=== PATIENT | female | born 1960 | race Caucasian/White ===

== ENCOUNTER 2020-04-12 18:36 | Inpatient (IN) | payer MEDICARE, MEDICAID ==
[~2020-04-12] VITALS: Ht 142.2 cm; Wt 33.0 kg
--- NOTE | 2020-04-12 21:10 | NUR ---
Patient arrived Alert and oriented X4, moaning, not really saying much. Unlabored breathing, C/O pain and cramping in the abdomen, also prefers to lay flat d/t nausea. Patient was placed in room 94A, on O2 2 LPM, side rails up X2, bed on lowest position and lucked, offered patient ice ships. Called Dr Paris for orders.
[2020-04-12 21:30] VITALS: BP 121/92
[2020-04-12] MEDS ORDERED: HEPARIN SODIUM (PORCINE) 5000 UNITS/ML 1ML VIAL SC SCH (22:00)
[2020-04-12] MEDS ORDERED: NITROGLYCERIN 0.4 MG SL TAB SL PRN (22:00)
[2020-04-12 23:00] LABS: Basophils # (auto) 0 10 ^3/uL (0-0.2); Eosinophils # (auto) 0 10 ^3/uL (0-0.8); Eosinophils % (auto) 0.1 % (0.0-7.0); Hematocrit 24.9 % (36.0-46.0); Neutrophils # (auto) 7.2 10 ^3/uL (1.6-8.6); White Blood Cell 8.1 10^3/uL (4.4-10.8)
[2020-04-12 23:02] LABS: Basophils % (auto) 0.2 % (0.0-2.0); Hemoglobin 7.7 g/dL (12.2-16.2); Lymphocytes # (auto) 0.4 10 ^3/uL (0.4-5.4); Lymphocytes % (auto) 4.3 % (10.0-50.0); Mean Corpuscular Hemoglobin 32.9 pg (28.0-32.0); Mean Corpuscular Hgb Conc. 30.9 g/dL (32.0-36.0); Mean Corpuscular Volume 106.3 fL (80.0-100.0); Monocytes # (auto) 0.6 10 ^3/uL (0-1.3); Neutrophils % (auto) 88.4 % (37.0-80.0); Nucleated Red Blood Cells % 0.1 %; Platelet Count (auto) 147 10^3/uL (140-450); Red Blood Cells 2.34 10^6/uL (4.0-5.20); Red Cell Distribution Width 18.9 % (11.8-14.3)
[2020-04-12 23:16] LABS: Albumin 2.7 g/dL (3.4-5.0); BUN/Creatinine Ratio 2.8; Potassium 3.5 mmol/L (3.5-5.1)
[2020-04-12] MEDS: HYDROcodone-ACET 5/325MG TAB PO PRN (23:20)
[2020-04-12] MEDS: ONDANSETRON HCL 4 MG/2 ML VIAL IV PRN (23:20)
[2020-04-12 23:21] LABS: Bilirubin, Total 0.9 mg/dL (0.2-1.0); Total Protein 6.3 g/dL (6.4-8.2)
--- NOTE | 2020-04-12 23:59 | NUR ---
Troponin levels high, Got a 12 lead EKG, called and notified Dr Paris. No farther orders. Will cont with plan.
[2020-04-13] VITALS (14 sets, daily range): BP systolic 100–144; BP diastolic 33–67
--- NOTE | 2020-04-13 08:00 | NUR ---
Opening Shift Note Assumed care of patient, awake and alert. No S/S of distress/SOB patient is complaining of generalized pain to the spine and abdominal area, I will medicate as ordered. Instructed on POC and to call for assist PRN, will continue to monitor for changes Q1hr and PRN. Bed locked in lowest position with two side rails up and call light in reach.
[2020-04-13] MEDS: HYDROcodone-ACET 5/325MG TAB PO PRN ×3 (08:16→20:20)
--- NOTE | 2020-04-13 09:30 | NUR ---
DR TAWANDA PINON. ORDERS RECEIVED WILL CARRY OUT.
[2020-04-13] MEDS ORDERED: HEPARIN DRIP/D5W 100UNITS/ML 250 ML IV SCH ×2 (09:52→11:45)
[2020-04-13] MEDS ORDERED: ASPirin 325 MG TAB PO ONE (10:00)
[2020-04-13] MEDS ORDERED: methylPREDNISolone SOD SUCC 125 MG/2 ML VL IV ONE (10:00)
[2020-04-13] MEDS: methylPREDNISolone SOD SUCC 125 MG/2 ML VL IV SCH ×2 (10:00→21:20)
[2020-04-13] MEDS: ASPirin 81 mg TAB PO SCH (10:00)
[2020-04-13] MEDS ORDERED: HEPARIN SODIUM (PORCINE) 5000 UNITS/ML 1ML VIAL IV ONE (10:00)
--- NOTE | 2020-04-13 10:20 | NUR ---
EKG DONE STAT ORDERED.
[2020-04-13 10:39] LABS: Basophils # (auto) 0 10 ^3/uL (0-0.2); Eosinophils # (auto) 0 10 ^3/uL (0-0.8); Lymphocytes # (auto) 0.2 10 ^3/uL (0.4-5.4); Monocytes # (auto) 0.4 10 ^3/uL (0-1.3); Neutrophils # (auto) 4.5 10 ^3/uL (1.6-8.6); White Blood Cell 5.2 10^3/uL (4.4-10.8)
[2020-04-13 10:41] LABS: Basophils % (auto) 0.3 % (0.0-2.0); Lymphocytes % (auto) 4.6 % (10.0-50.0); Neutrophils % (auto) 87.1 % (37.0-80.0); Nucleated Red Blood Cells % 0.3 %; Red Blood Cells 2.18 10^6/uL (4.0-5.20)
[2020-04-13 10:42] LABS: Hematocrit 21.8 % (36.0-46.0); Hemoglobin 7.2 g/dL (12.2-16.2); Mean Corpuscular Volume 99.3 fL (80.0-100.0)
[2020-04-13 10:43] LABS: Mean Corpuscular Hemoglobin 32.7 pg (28.0-32.0); Mean Corpuscular Hgb Conc. 32.9 g/dL (32.0-36.0); Platelet Count (auto) 113 10^3/uL (140-450); Red Cell Distribution Width 17.9 % (11.8-14.3)
[2020-04-13 10:51] LABS: INR 1.32 (0.9-1.15); Partial Thromboplastin Time 52.1 sec (23.0-31.2)
[2020-04-13] MEDS: PANTOPRAZOLE 40 MG TAB PO SCH (11:11)
[2020-04-13] MEDS: ATORVASTATIN 20 MG TAB PO SCH (11:11)
[2020-04-13] MEDS: ONDANSETRON HCL 4 MG/2 ML VIAL IV PRN ×2 (11:15→17:44)
[2020-04-13 11:28] LABS: Albumin 2.9 g/dL (3.4-5.0)
[2020-04-13 11:38] LABS: BUN/Creatinine Ratio 3.9; Bilirubin, Total 0.6 mg/dL (0.2-1.0); Total Protein 6.1 g/dL (6.4-8.2)
[2020-04-13 11:46] LABS: Calcium 5.5 mg/dL (8.5-10.1)
--- NOTE | 2020-04-13 11:50 | NUR ---
RECEIVED A CALL FROM JANEEN IN LAB TROPONIN 28.300 Ca 5.5
--- NOTE | 2020-04-13 12:00 | NUR ---
DR NEFF NOTIFIED OF PATIENTS LABS INCLUDING ACCU CHECK 107, EKG RHYTHM AND BLOOD ETA. NO NEW ORDERS RECEIVED.
--- NOTE | 2020-04-13 12:30 | NUR ---
RECEIVED A CALL FROM [facility] IN LAB. PER [facility] ANTIBODIES FOR BLOOD JUST RECEIVED AND WAS SENT OUT FOR BLOOD. PER [facility] BLOOD WONT BE HERE IN HOSPITAL FOR ANOTHER 3 HOURS WHICH IS AROUND 3PM.WILL NOTIFY DR NEFF.
--- NOTE | 2020-04-13 13:30 | NUR ---
DIALYSIS NURSE AT BEDSIDE. I NOTIFIED OF PATIENT GOING DOWN TO DIRECTOR DIGITAL ANALYTICS. PER DR NEFF, DIALYSIS CAN BE DONE AFTER CATH. DR MARRERO AND DIALYSIS NURSE AWARE.
--- NOTE | 2020-04-13 13:45 | NUR ---
VS FOLLOWS 98/51, 82, 100 % 2LNC, 18 .
--- NOTE | 2020-04-13 14:05 | NUR ---
PATIENT TAKEN DOWN TO METALIZING MACHINE OPERATOR.
[2020-04-13] MEDS ORDERED: HEPARIN SODIUM (PORCINE) 5000 UNITS/ML 1ML VIAL ONE (14:48)
[2020-04-13] MEDS ORDERED: ANGIOMAX 250 MG VIAL IV ONE (14:48)
[2020-04-13] MEDS ORDERED: VERAPAMIL 2.5MG/ML INJ 2ML VIAL IV ONE (14:49)
[2020-04-13] MEDS ORDERED: fentaNYL CITRATE 100 MCG/2 ML VL ONE (14:49)
[2020-04-13] MEDS ORDERED: SODIUM CHL 0.9% 0 ML ONE (14:49)
[2020-04-13] MEDS ORDERED: MIDAZOLAM HCL 1MG/1ML-2 ML VIAL ONE (14:49)
[2020-04-13] MEDS ORDERED: LIDOCAINE 2%HCL (LOCAL ANESTH.) INJ 20ML MDV ONE (14:50)
[2020-04-13] MEDS ORDERED: IODIXANOL 320MG/ML 100ML BTL IV ONE ×3 (14:50→16:31)
[2020-04-13] MEDS ORDERED: methylPREDNISolone SOD SUCC 125 MG/2 ML VL ONE (15:21)
[2020-04-13] MEDS ORDERED: FAMOTIDINE (10MG/ML) 2ML VL IV ONE (15:21)
[2020-04-13] MEDS ORDERED: diphenhdrAMINE HCL 50 MG/1 ML VL ONE (15:21)
[2020-04-13] MEDS ORDERED: NOREPINEPHRINE 8 MG/250ML KIT 0 ML IV ONE (16:20)
[2020-04-13] MEDS ORDERED: TICAGRELOR 90 MG TAB ONE (16:22)
--- NOTE | 2020-04-13 17:15 | NUR ---
PT transported to ICU 104 via bed and portable monitor and 02. Transferred to bed with assistance. placed on bedside monitor and 02. drsg to rt groin C/D/I no oozing or bleeding. Primary RN at bedside drsg checked. Pt resting in bed. Transfer services to NATURALIST
--- NOTE | 2020-04-13 17:32 | NUR ---
REPORT GIVEN TO ARI BENNETT. PATIENT GOING TO BED 104
--- NOTE | 2020-04-13 17:34 | NUR ---
Pt being admitted to ICU STEPHAN MUNROE admitted to ICU via gurney on bus driver/monitor, and portable 02. Patient transfered to bed, connected to ICU monitoring and oxygen, and weighed by bedscale. Patient oriented to Rush burks RN, unit, room, bed, and unit policies regarding patient care and visiting hours. All questions and concerns addressed, patient verbalized understanding.
--- NOTE | 2020-04-13 17:45 | NUR ---
DR. JANES TORRES PER DR. NEFF FOR DIALYSIS ORDERS
--- NOTE | 2020-04-13 17:52 | NUR ---
DR. VIRGIE OJEDA NOTIFIED OF DR. LUNA REQUEST FOR DIALYSIS. PER DR. GARVIN PATIENT WILL RECEIVE DIALYSIS TOMORROW 04/14
[2020-04-13] MEDS: CALCIUM ACETATE 667 MG CAP PO SCH (17:53)
--- NOTE | 2020-04-13 18:30 | NUR ---
PATIENT REFUSED DINNER TRAY STATES "I'M NOT HUNGRY"
--- NOTE | 2020-04-13 18:50 | NUR ---
MRSA SCREEN SENT TO LAB VIA BULLET
[2020-04-13] MEDS: TICAGRELOR 90 MG TAB PO SCH (21:20)
[2020-04-13] MEDS: MORPHINE SULF INJ 2 MG/ML SYRINGE 1ML IV PRN (21:41)
[2020-04-13] MEDS ORDERED: TICAGRELOR 90 MG TAB PO SCH (22:00)
--- NOTE | 2020-04-13 23:38 | NUR ---
NARCOTICS FOUND IN BED WITH PATIENT: COVERING DONALD MCDONNELL FOR LUNCH. CHANGED PATIENT'S SHEETS, FOUND 4-5 SMALL WHITE PILLS IN THE BED WITH PRESCRIPTION BOTTLE CAPS. PATIENT CLINGING ON TO PURSE. ASKED IF CNC MAINTENANCE MECHANIC COULD REMOVE PURSE FROM BEDSIDE, FOUND WITH A COUPLE OF DILAUDID PRESCRIPTION BOTTLES WITH THEIR CAPS MISSING. PATIENT STATES SHE DID NOT TAKE ANY OF HER OWN MEDICATION. REMOVED ALL PRESCRIPTIONS FROM HER PURSE. MARTINA GAN RN MADE AWARE. DONALD MCDONNELL TO SEND PRESCRIPTIONS TO PHARMACY
[2020-04-14] VITALS (17 sets, daily range): BP systolic 34–139; BP diastolic 12–91
[2020-04-14] MEDS: MORPHINE SULF INJ 2 MG/ML SYRINGE 1ML IV PRN (02:58)
[2020-04-14 05:18] LABS: Basophils # (auto) 0 10 ^3/uL (0-0.2); Eosinophils # (auto) 0 10 ^3/uL (0-0.8); Hemoglobin 7.1 g/dL (12.2-16.2); Monocytes # (auto) 0.3 10 ^3/uL (0-1.3)
[2020-04-14 05:23] LABS: Basophils % (auto) 0.2 % (0.0-2.0); Eosinophils % (auto) 0.2 % (0.0-7.0); Hematocrit 23.7 % (36.0-46.0); Lymphocytes # (auto) 0.3 10 ^3/uL (0.4-5.4); Lymphocytes % (auto) 7.6 % (10.0-50.0); Mean Corpuscular Hemoglobin 33.3 pg (28.0-32.0); Mean Corpuscular Hgb Conc. 30.1 g/dL (32.0-36.0); Mean Corpuscular Volume 110.8 fL (80.0-100.0); Monocytes % (auto) 6.1 % (0.0-12.0); Neutrophils # (auto) 3.5 10 ^3/uL (1.6-8.6); Neutrophils % (auto) 85.9 % (37.0-80.0); Platelet Count (auto) 130 10^3/uL (140-450); Red Blood Cells 2.14 10^6/uL (4.0-5.20); Red Cell Distribution Width 19.9 % (11.8-14.3); White Blood Cell 4.1 10^3/uL (4.4-10.8)
[2020-04-14 05:27] LABS: Nucleated Red Blood Cells % 3.1 %
[2020-04-14 05:28] LABS: INR 2.05 (0.9-1.15)
[2020-04-14 05:37] LABS: Potassium 4.3 mmol/L (3.5-5.1)
[2020-04-14 05:49] LABS: Albumin 2.9 g/dL (3.4-5.0); BUN/Creatinine Ratio 4.8; Bilirubin, Total 1.1 mg/dL (0.2-1.0); Calcium 6.4 mg/dL (8.5-10.1); Total Protein 5.9 g/dL (6.4-8.2)
[2020-04-14] MEDS: HYDROcodone-ACET 5/325MG TAB PO PRN ×2 (06:40→12:40)
--- NOTE | 2020-04-14 06:44 | NUR ---
PT HAS BEEN ALMOST CONSTANTLY RESTLESS, REMOVING THE OXIGEN, EKG LEADS, IV IN LT ARM,PULSE OX, GOWN. C/O PAIN IN THE ABDOMEN, SPINE,SIDES. MEDICATED TWICE WITH MORPHINE 2 MG IV AND TWICE WITH NORCO. 4 BOTTLES OF NARCOTICS FOUND IN PT'S BED, COUNTED AND PLACED IN SPECIAL BAG TO BE SENT TO PHARMACY FOR SAFE STORAGE. PT SCHEDULED FOR HD THIS MORNING. INCONTINENT OF STOOL TWICE, NO URINE OUTPUT.
[2020-04-14] MEDS ORDERED: SODIUM CHL 0.9% 1000 ML BAG XX ONE ×2 (07:00→12:00)
[2020-04-14] MEDS ORDERED: DEXTROSE 50% SYRINGE 50 ML IV ONE (07:05)
--- NOTE | 2020-04-14 07:21 | NUR ---
BLOOD GLUCOSE BY LAB, REPORTED 49, TWO CUPS OF OJ GIVEN TO PT.
--- NOTE | 2020-04-14 07:30 | NUR ---
REPORT RECEIVED ASSUMING CARE
--- NOTE | 2020-04-14 07:45 | NUR ---
NO IV ACCESS, 22 G TO LEFT FA PLACED AFTER 2 ATTEMPTS
[2020-04-14] MEDS: SPIRONOLACTONE 25 MG TAB PO SCH ×2 (08:00→10:00)
[2020-04-14] MEDS: CALCIUM ACETATE 667 MG CAP PO SCH ×2 (08:00→11:48)
--- NOTE | 2020-04-14 08:02 | NUR ---
D50 GIVEN AND ORANGE JUICE WITH 2 SUGAR PACKETS GIVEN PATIENT SWALLOWED WITHOUT ISSUE AND HOB RAISED, NO SIGNS OF ASPIRATION NOTED SEE LABS FOR BLOOD SUGAR
[2020-04-14] MEDS ORDERED: LIDOCAINE 2% (LOCAL ANESTH.) PF 5ml SDV ONE (08:13)
[2020-04-14] MEDS: ONDANSETRON HCL 4 MG/2 ML VIAL IV PRN (09:07)
--- NOTE | 2020-04-14 09:13 | NUR ---
1 UNIT PRBC GIVEN TO HD NURSE TO GIVE WITH DIALYSIS
--- NOTE | 2020-04-14 09:22 | NUR ---
DR GALEANO AWARE OF LOW BLOOD SUGAR THIS AM, 15 AND 36. OJ WITH SUGAR PACKETS AND 1 AMP D50 GIVEN AFTER 22 G TO LEFT FA AFTER 2 ATTEMPTS. RECHECKED BLOOD SUGAR [address] GALEANO ORDERED ACCUCHECKS Q2H TO MONITOR FOR HYPOGLYCEMIA. RECEIVING HEMODIALYSIS AT THIS TIME. ZOFRAN GIVEN FOR NAUSEA WITH 50 ML BROWN BILIOUS EMESIS-SEE EMAR FOR TIME.
[2020-04-14] MEDS ORDERED: METOPROLOL TARTRATE 25 MG TAB PO SCH (10:00)
[2020-04-14] MEDS ORDERED: ENALAPRIL MALEATE 2.5 MG TAB PO SCH (10:00)
--- NOTE | 2020-04-14 10:00 | NUR ---
UNABLE TO OBTAIN ORAL/AXILLARY TEMPERATURE WITH MULTIPLE THERMOMETERS. ENCOURAGED RECTAL TEMPERATURE PROBE AT 0800 UPON ASSESSMENT AND PATIENT REFUSED. AGREED TO RECTAL PROBE AT THIS TIME. TEMP 93.6 F AND WARM BLANKETS/IMKE HUGGER APPLIED. DR GALEANO AWARE.
[2020-04-14] MEDS: ACCU-CHEK COMFORT CURVE STRIP VI SCH ×4 (10:15→16:18)
[2020-04-14] MEDS ORDERED: DEXTROSE (50%) 50ML SYRG IV PRN (10:15)
--- NOTE | 2020-04-14 10:30 | NUR ---
TANIA SMITH CALLED AND SPOKE WITH PATIENT ON PORTABLE ICU PHONE
--- NOTE | 2020-04-14 11:00 | NUR ---
HD FINISHED, DID NOT PULL ANY FLUID GAVE 650 INCLUDING 1 UNIT PRBC, NO TRANSFUSION REACTION
--- NOTE | 2020-04-14 11:15 | NUR ---
DR NEFF AT BEDSIDE AWARE OF ABD PAIN/NAUSEA//EMESIS/DIARRHEA WITH RUST COLOR/MUCOUS/FIRM AND PAINFUL TO LIGHT PALPATION WITH HYPOACTIVE BOWEL SOUNDS. NOT ENOUGH FOR SAMPLE. ORDERED GI CONSULT BUT WOULD LIKE RN TO VERIFY WITH DR GALEANO REGARDING WHICH GI DR. GALEANO AWARE AWAITING CALL BACK. Addendum: 04/14/20 at 2005 by Jak Shaw RN GAVE OK TO GIVE ASA, BRILINTA AWARE LABS INCLUDING HGB AND ALLERGY TO ASA
[2020-04-14] MEDS: TICAGRELOR 90 MG TAB PO SCH (11:40)
[2020-04-14] MEDS: ASPirin 81 mg TAB PO SCH (11:40)
[2020-04-14] MEDS: methylPREDNISolone SOD SUCC 125 MG/2 ML VL IV SCH (11:41)
[2020-04-14] MEDS: PANTOPRAZOLE 40 MG TAB PO SCH (11:41)
[2020-04-14] MEDS: ATORVASTATIN 20 MG TAB PO SCH (11:41)
[2020-04-14] MEDS ORDERED: LIDOCAINE HCL 2 %PF INJ 10ML AMP IJ ONE (12:00)
--- NOTE | 2020-04-14 12:13 | NUR ---
2ND AMP D50 GIVEN TODAY FOR LOW BLOOD SUGAR, SEE LABS FOR RESULTS/REPEATS
--- NOTE | 2020-04-14 12:40 | NUR ---
NORCO GIVEN FOR C/O 05/13 ABD PAIN
--- NOTE | 2020-04-14 13:00 | NUR ---
BOYFRIEND/CAREGIVER BROUGHT IN BAG OF BELONGINGS TO PATIENT INCLUDING UNDERWEAR X3 AND CELL PHONE SWEET GOODS MACHINE OPERATOR.
[2020-04-14] MEDS ORDERED: DEXTROSE 10% 1,000 ML IV SCH (13:15)
--- NOTE | 2020-04-14 13:52 | NUR ---
PAGED DR WOODY FOR NEW GI CONSULT FOR ABD PAIN Addendum: 04/14/20 at 1953 by Jak Shaw RN PER DR GALEANO, CONSULT DR WOODY
--- NOTE | 2020-04-14 14:00 | NUR ---
DR WOODY AT BEDSIDE FOR GI CONSULT, DR WOODY ASSESSED PATIENT AND PLACED ORDERS. AWARE OF C/O SEVERE ABD PAIN WITH RN GIVING NORCO RECENTLY. D10 STARTED AT 50ML/HR PER DR GARVIN ORDER. LAST BLOOD SUGAR 147, RN HELD THE 100 ML BOLUS OF D10 ORDERED. IVAN WILLIAMSON CARDIO AT BEDSIDE AND NEW ORDERS PLACED.
[2020-04-14] MEDS ORDERED: HYOSCYAMINE SULF 0.125 MG ODT TAB PO PRN (14:15)
[2020-04-14] MEDS ORDERED: HYDROmorphone HCL 2 MG/ML VL IV PRN ×2 (14:15→14:30)
[2020-04-14] MEDS: DEXTROSE 10% 100 ML IV ONE ×2 (14:17→14:47)
--- NOTE | 2020-04-14 14:17 | NUR ---
D10 STARTED AT 50 ML/HR DUE TO DR GRAVIN ORDER BLOOD SUGAR 147 AT THIS TIME
--- NOTE | 2020-04-14 14:27 | NUR ---
C/O 10/10 ABD PAIN, DILAUDID GIVEN ORDERED.
[2020-04-14] MEDS ORDERED: LACTULOSE 20Gm/30ML SOLN PO PRN (14:30)
[2020-04-14] MEDS ORDERED: AZITHROMYCIN 500MG/ 250ML 250 ML IV ONE (15:15)
--- NOTE | 2020-04-14 16:00 | NUR ---
ARIAN GALEANO REFUSE COLLECTOR SUPERVISOR IN TO ASSESS PATIENT, AWARE OF ABD PAIN, LABS
--- NOTE | 2020-04-14 16:27 | NUR ---
C/O 05/13 ABD PAIN. DIALUDID GIVEN ORDERED.
--- NOTE | 2020-04-14 16:55 | NUR ---
Midline Placement: Patient educated on need for midline placement. All risks and benefits explained and all questions and concerns addresses prior to procedure. 18g/10cm midline inserted via left basilic vein using Ultrasound. Sterile technique utilized. Blood return obtained from lumen and flushed easily with NS using proper technique. Midline secured with saline lock; biodisc and occlusive dressing applied. Primary RN notified. Midline lot #[id number]
[2020-04-14] MEDS ORDERED: SUCRALFATE 1 GM/10 ML ORAL SUSP PO SCH (17:00)
--- NOTE | 2020-04-14 17:17 | NUR ---
WALKED INTO ROOM TO ASSESS PATIENT DUE TO NO BP/HR ON MONITOR AND CODE BLUE CALLED. PATIENT WAS FOUND TO BE IN ASYSTOLE AND NOT BREATHING.
--- NOTE | 2020-04-14 17:27 | NUR ---
CODE BLUE CALLED AT 1717. ROSC ACHIEVED. PT INTUBATED BY MYSELF WITH A 7.5 ETT SECURED BY NIRMALA AT 23 UPPER LIP. CUFF PRESSURE IS FIRM. POSITIVE CAPNOMETER COLOR CHANGE. DR. NIEVES AT BEDSIDE.
[2020-04-14 17:39] LABS: Red Blood Cells 2.06 10^6/uL (4.0-5.20)
[2020-04-14 17:41] LABS: Hematocrit 21.4 % (36.0-46.0); Mean Corpuscular Hemoglobin 32.4 pg (28.0-32.0); Mean Corpuscular Hgb Conc. 31.3 g/dL (32.0-36.0); Mean Corpuscular Volume 103.8 fL (80.0-100.0); Platelet Count (auto) 69 10^3/uL (140-450); Red Cell Distribution Width 18.9 % (11.8-14.3); White Blood Cell 2.8 10^3/uL (4.4-10.8)
[2020-04-14] MEDS ORDERED: NOREPINEPHRINE 8 MG/250ML KIT 250 ML IV ONE ×2 (17:42→17:45)
[2020-04-14 17:59] LABS: Albumin 1.7 g/dL (3.4-5.0); Potassium 4.7 mmol/L (3.5-5.1)
[2020-04-14] MEDS ORDERED: NOREPINEPHRINE 8 MG/250ML KIT 250 ML IV SCH (18:00)
--- NOTE | 2020-04-14 18:00 | NUR ---
SPOKE WITH DR GARVIN/DR WOODY/DR NEFF. ALL AWARE OF CODE BLUE. DR GARVIN AWARE OF LABS AND GAVE ORDER FOR [address] NEFF STATED TO TAKE PATIENT TO CTA OF CHEST/ABD/PELVIS ONCE STABLE. NO NEW ORDERS FROM DR WOODY.
[2020-04-14 18:02] LABS: Hemoglobin 6.7 g/dL (12.2-16.2); Total Protein 3.7 g/dL (6.4-8.2)
[2020-04-14 18:04] LABS: Basophils % (manual) 0 (0.0-2.0); Blast Cells 0; Eosinophils % (manual) 0 (0-7); Myelocytes % 0; Promyelocytes % 0; Reactive Lymphocytes 0
[2020-04-14 18:08] LABS: Band Neutrophils % (manual) 5; Bilirubin, Total 0.7 mg/dL (0.2-1.0); Lymphocytes % (manual) 16 (10.0-50.0); Metamyelocytes % 3; Monocytes % (manual) 5 (0-12)
[2020-04-14 18:21] LABS: Calcium 5.2 mg/dL (8.5-10.1)
[2020-04-14 18:22] LABS: BUN/Creatinine Ratio 5.4
--- NOTE | 2020-04-14 18:25 | NUR ---
CODE BLUE #2 POA CALLED TO NOTIFY OF SECOND CODE BLUE. SISTER NICOLE SPOKE TO DR. LESTER. CODE BLUE STOPPED PER SISTERS REQUEST. Addendum: 04/14/20 at 1830 by Adriana Pate RN SPOKE TO FAMILY VIA PHONE.
--- NOTE | 2020-04-14 18:29 | NUR ---
FAMILY SON IN LAW REQUESTING TO SEE IF DAUGHTERVALENTINA CAN COME TO VISIT, SHIRLEY RIVERA CALLED TO VERIFY VISITATION. MSG LEFT AFTER 2 CALLS ATTEMPTED. AWAITING CALLBACK.
--- NOTE | 2020-04-14 18:45 | NUR ---
CALLED MARKET RESEARCH ANALYST, WILL CALL BACK RN
--- NOTE | 2020-04-14 18:54 | NUR ---
[employer] NOTIFIED OF NOT A CANDIDATE FOR DONATION, REFERENCE NUMBER [id number]
--- NOTE | 2020-04-14 19:00 | NUR ---
DR GALEANO AWARE OF CODE BLUE X2 AND THAT PATIENT SISTER REQUESTED TO STOP CPR PER DR TRUJILLO AND ASHLEY BENNETT WHO HAD CALLED HER TO UPDATE HER ON STATUS.
--- NOTE | 2020-04-14 19:30 | NUR ---
SPOKE WITH NICOLE SISTER/POA STATED THAT DTR NANETTE IS ON WAY TO SEE PATIENT, STATED THAT SHE WANTS TO INDUSTRIAL RETROFIT DESIGNER BELONGINGS OF PATIENT TOMORROW WHEN SHE ARRIVES FROM [place] AND TO NOT GIVE ANY BELONGINGS TO DTR. REPORT GIVEN TO DONALD GAN.
[2020-04-14] MEDS ORDERED: EPOETIN ALFA 10,000 UNIT/1 ML VIAL SC ONE (21:00)
--- NOTE | 2020-04-14 21:06 | NUR ---
PROGRAM MANAGER CALLED PT NOT A CORONERS CASE. PROGRAM MANAGER JUN OSBORNE STATES THERE IS NO CASE NUMBER.
--- NOTE | 2020-04-14 21:40 | NUR ---
PT DAUGHTER TO BEDSIDE TO VIEW PT
[2020-04-14] MEDS ORDERED: PANTOPRAZOLE 40 MG TAB PO SCH (22:00)
--- NOTE | 2020-04-14 22:19 | NUR ---
MORTUARY DECEDENT HAS PRE ARRANGEMENTS WITH [facility]. I SPOKE WITH THE SUPERVISOR MODEL MAKING. HE IS GOING TO TRY TO ARRANGE TELEGRAPH INSTALLER OF PT FROM A LOCAL MORTUARY. PER DIRECTOR HE WILL CONTACT THE HOSPITAL TOMORROW TO MAKE ARRANGEMENTS FOR TELEGRAPH INSTALLER. . [place] [facility] [place]
--- NOTE | 2020-04-14 22:45 | NUR ---
FAMILY CONTACT NICOLE GALAN/DARLENE [phone]
[2020-04-15] MEDS ORDERED: DEXTROSE (50%) 50ML SYRG IV ONE (00:39)
[2020-04-15] MEDS ORDERED: SODIUM BICARBONATE 8.4% INJ 50ML SYRINGE IV ONE (00:39)
[2020-04-15] MEDS ORDERED: EPINEPHrine HCL 1 MG/10 ML SYRG IV ONE (00:39)
[2020-04-15] MEDS ORDERED: AZITHROMYCIN 500MG/ 250ML 250 ML IV SCH (10:00)
== END 2020-04-14 18:25 | disposition expired | DRG 246 ==
LOC: TELE-WESTW 21:23 → ICU WEST 04-13 17:02
PROVIDERS: ADMIT Specialist; ATTEND Specialist
PROC: 027034Z Dilation of Coronary Artery, One Artery with Drug-eluting Intraluminal Device, Percutaneous Approach (ICD-10-PCS; principal; 2020-04-13)
PROC: 4A023N7 Measurement of Cardiac Sampling and Pressure, Left Heart, Percutaneous Approach (ICD-10-PCS; 2020-04-13)
PROC: 5A1D70Z Performance of Urinary Filtration, Intermittent, Less than 6 Hours Per Day (ICD-10-PCS; 2020-04-13)
PROC: B2111ZZ Fluoroscopy of Multiple Coronary Arteries using Low Osmolar Contrast (ICD-10-PCS; 2020-04-13)
PROC: B2151ZZ Fluoroscopy of Left Heart using Low Osmolar Contrast (ICD-10-PCS; 2020-04-13)
PROC: 5A12012 Performance of Cardiac Output, Single, Manual (ICD-10-PCS; 2020-04-14)
PROC: 30233N1 Transfusion of Nonautologous Red Blood Cells into Peripheral Vein, Percutaneous Approach (ICD-10-PCS; 2020-04-14)
PROC: 06HM33Z Insertion of Infusion Device into Right Femoral Vein, Percutaneous Approach (ICD-10-PCS; 2020-04-14)
DX: I21.4 Non-ST elevation (NSTEMI) myocardial infarction (principal); N18.6 End stage renal disease; I50.21 Acute systolic (congestive) heart failure; E44.0 Moderate protein-calorie malnutrition; J98.11 Atelectasis; I13.2 Hypertensive heart and chronic kidney disease with heart failure and with stage 5 chronic kidney disease, or end stage renal disease; Z68.1 Body mass index [BMI] 19.9 or less, adult; K21.9 Gastro-esophageal reflux disease without esophagitis; D63.1 Anemia in chronic kidney disease; E16.2 Hypoglycemia, unspecified; G89.29 Other chronic pain; I25.10 Atherosclerotic heart disease of native coronary artery without angina pectoris; I25.5 Ischemic cardiomyopathy; I73.9 Peripheral vascular disease, unspecified; E78.5 Hyperlipidemia, unspecified; M06.9 Rheumatoid arthritis, unspecified; Z99.2 Dependence on renal dialysis; I25.2 Old myocardial infarction; Z79.02 Long term (current) use of antithrombotics/antiplatelets; Z87.891 Personal history of nicotine dependence; Z88.6 Allergy status to analgesic agent; Z90.5 Acquired absence of kidney; Z90.710 Acquired absence of both cervix and uterus; Z88.5 Allergy status to narcotic agent; Z91.041 Radiographic dye allergy status
CPT/HCPCS: 36415; 36600; 71045; 80053; 80061; 82805; 82962; 83605; 84484; 85007; 85025; 85027; 85610; 85730; 86850; 86870; 86880; 86900; 86901; 86905; 86906; 86922; 86971; 87081; 90935; 92928; 92950; 93005; 93306; 93458; 94002; 99152; 99153; C1874; G0378; J0885; J2001; J2250; J2405; J3490; Q9967